=== PATIENT | female | born 1960 | race Caucasian/White ===

== ENCOUNTER → 2017-07-15 | Outpatient (CLI) | payer OTHER ==
[2014-01-22 09:10] VITALS: BMI 26.9
[~2017-07-15] MED LIST: ACET-3017 PO; BLAC40CA3 PO; ESTR-108 TD; ESTROGEN; KET10 PO; LEVO750T44 PO; LIFI1DRO OU; METR-1 PO; SIMV-42 PO
--- NOTE | 2017-07-16 10:27 | RADIOLOGY IMAGING REPORT ---
[place] [facility] [place] NAME: YUN LAWSON : [id number] MR: [id number] V: [id number] EXAM DATE: ORDERING PHYSICIAN: EVERTON CAMARA TECHNOLOGIST: Christine Baldwin PROCEDURE:BILATERAL DIGITAL SCREENING MAMMOGRAM WITH CAD ASSISTED INTERPRETATION & 3D TOMOSYNTHESIS COMPARISON:Prior mammograms 07/14/16, 07/10/14, 07/25/13, 07/14/12, 07/08/11 INDICATIONS:SCREENING FINDINGS: Dense heterogeneous fibroglandular tissue is seen throughout the breasts. The parenchymal pattern has remained stable allowing for difference in mammographic technique & patient positioning. There is no evidence of malignant appearing mass, malignant appearing calcifications or other secondary sign of malignancy in either breast. DIAGNOSTIC CATEGORY 1--NEGATIVE. RECOMMENDATIONS: ROUTINE MAMMOGRAM AND CLINICAL EVALUATION. IMPRESSION: BIRADS 1: Negative No significant abnormality is seen Dictated by: Mallika Campos M.D. on 07/15/2017 at 16:57 Transcribed by: ZENON on 07/16/2017 at 9:29 Approved by: Mallika Campos M.D. on 07/16/2017 at 10:26 [facility]
== END ==
LOC: MAMO 00:38
PROVIDERS: ATTEND Student in an Organized Health Care Education/Training Program
DX: Z12.31 Encounter for screening mammogram for malignant neoplasm of breast (principal)
CPT/HCPCS: 77063; 77067

== ENCOUNTER → 2018-07-29 | Outpatient (CLI) | payer OTHER ==
[2014-01-22 09:10] VITALS: BMI 26.9
--- NOTE | 2018-08-01 10:48 | RADIOLOGY IMAGING REPORT ---
FACILITY: [facility] - [place] PATIENT NAME: YUN LAWSON : [id number] MR: [id number] V: [id number] EXAM DATE: [id number] ORDERING PHYSICIAN: SAWYER NINO TECHNOLOGIST: Sherie Kelly PROCEDURE:BILATERAL DIGITAL SCREENING MAMMOGRAM WITH CAD ASSISTED INTERPRETATION & 3D TOMOSYNTHESIS COMPARISON:Prior mammograms INDICATIONS:SCREENING FINDINGS: The breasts are heterogeneously dense. Benign appearing asymmetries are scattered bilaterally, essentially unchanged. Benign appearing calcifications are scattered bilaterally. DIAGNOSTIC CATEGORY 1--NEGATIVE. RECOMMENDATIONS: ROUTINE MAMMOGRAM AND CLINICAL EVALUATION. IMPRESSION: BIRADS 1: Negative. Dictated by: Bryan Lopez M.D. on 07/29/2018 at 15:47 Transcribed by: ZENON on 08/01/2018 at 8:20 Approved by: Mallika Campos M.D. on 08/01/2018 at 10:47 [facility]
== END ==
LOC: MAMO 02:38
PROVIDERS: ATTEND Obstetrics & Gynecology
DX: Z12.31 Encounter for screening mammogram for malignant neoplasm of breast (principal); R92.1 Mammographic calcification found on diagnostic imaging of breast
CPT/HCPCS: 77063; 77067